=== PATIENT | male | born 1975 | race Hispanic/Latino ===

== ENCOUNTER 2018-08-24 00:33 | Emergency (ER) | payer BC ==
[2018-08-24] MEDS ORDERED: KETOROLAC 30 MG/ML INJ ONE (01:23)
[2018-08-24] MEDS ORDERED: NA CHLORIDE 0.9% 1,000 ML ONE (01:23)
[2018-08-24 01:44] LABS: Absolute Lymphocytes (CBC) 2.8 K/uL (0.7-4.9); Absolute Monocytes 0.8 K/uL (0.1-1.3); Absolute Neutrophil 5.9 K/uL (1.8-8.0); Basophils % 0.7 % (0-1.3); Eosinophils % 3.5 % (0-4.4); Hematocrit 44.5 % (39.6-49.0); Lymphocytes % 28.1 % (15.3-44.8); MPV 9.1 fL (7.6-11.3); Monocytes % 7.8 % (3.3-12.3); RBC Red Blood Cell Count 5.31 M/uL (4.33-5.43)
[2018-08-24 01:52] LABS: ALT/SGPT 125 U/L (12-78); AST/SGOT 40 U/L (15-37); Albumin 3.9 g/dL (3.4-5.0); Alkaline Phosphatase 99 U/L (45-117); BUN Blood Urea Nitrogen 17 mg/dL (7-18); Bicarbonate 28 mmol/L (21-32); Bilirubin Direct 0.2 mg/dL (0-0.2); Bilirubin Total 0.8 mg/dL (0.2-1.0); Glucose Level 121 mg/dL (74-106); Lipase 128 U/L (73-393); Magnesium 2.2 mg/dL (1.8-2.4); Potassium 3.6 mmol/L (3.5-5.1); Protein, Total 7.4 g/dL (6.4-8.2); Sodium Level 145 mmol/L (136-145)
--- NOTE | 2018-08-24 02:50 | ER ---
Nurse's Notes [facility] Name: Valentin Betancourt Age: 43 yrs Sex: Male : 1975 Arrival Date: 08/24/2018 Time: 00:46 Bed 7 Private MD: Diagnosis: Diverticulosis of intestine, part unspecified, without perforation or abscess without bleeding;Lower abdominal pain, unspecified Presentation: 08/24 01:00 Presenting complaint: Patient states: "the past couple of days I have had pain and jd3 bloating feeling in my lower left stomach and down into my left leg.". Transition of care: patient was not received from another setting of care. Onset of symptoms was August 24, 2018. Risk Assessment: Do you want to hurt yourself or someone else? Patient reports no desire to harm self or others. Initial Sepsis Screen: Does the patient meet any 2 criteria? No. Patient's initial sepsis screen is negative. Does the patient have a suspected source of infection? No. Patient's initial sepsis screen is negative. Care prior to arrival: None. 01:00 Method Of Arrival: Ambulatory jd3 01:00 Acuity: NEHA 3 jd3 Historical: - Allergies: 01:03 No Known Allergies; jd3 - Home Meds: 01:03 None [Active]; jd3 - PMHx: 01:03 None; jd3 - PSHx: 01:03 None; jd3 - Immunization history:: Adult Immunizations up to date. - Social history:: Smoking status: Patient/guardian denies using tobacco. - Ebola Screening: : Patient negative for fever greater than or equal to 101.5 degrees Fahrenheit, and additional compatible Ebola Virus Disease symptoms. Screenin:08 Abuse screen: Denies threats or abuse. Nutritional screening: No deficits noted. jd3 Tuberculosis screening: No symptoms or risk factors identified. Fall Risk Ambulatory Aid- None/Bed Rest/Nurse Assist (0 pts). Gait- Normal/Bed Rest/Wheelchair (0 pts) Mental Status- Oriented to own ability (0 pts). Total Pope Fall Scale indicates No Risk (0-24 pts). Assessment: 01:05 General: Appears in no apparent distress. uncomfortable, Behavior is calm, cooperative, jd3 appropriate for age. Pain: Complains of pain in left lower quadrant Quality of pain is described as aching, pressure. Neuro: Level of Consciousness is awake, alert, obeys commands, Oriented to person, place, time, situation, Appropriate for age. Cardiovascular: Denies chest pain, Capillary refill < 3 seconds Patient's skin is warm and dry. Respiratory: Airway is patent Respiratory effort is even, unlabored, Respiratory pattern is regular, symmetrical, Denies shortness of breath. GI: Abdomen is round non-distended, Bowel sounds present X 4 quads. Abd is soft and non tender X 4 quads. Reports lower abdominal pain, bloating, diarrhea. : No signs and/or symptoms were reported regarding the genitourinary system. EENT: No signs and/or symptoms were reported regarding the EENT system. Derm: Skin is intact, Skin is dry, Skin is normal, Skin temperature is warm. Musculoskeletal: Circulation, motion, and sensation intact. Range of motion: intact in all extremities. 02:00 Reassessment: Patient appears in no apparent distress at this time. Patient and/or [facility] family updated on plan of care and expected duration. Pain level reassessed. Patient is alert, oriented x 3, equal unlabored respirations, skin warm/dry/pink. Patient states feeling better. 02:57 Reassessment: Patient appears in no apparent distress at this time. No changes from [facility] previously documented assessment. Patient and/or family updated on plan of care and expected duration. Pain level reassessed. Patient is alert, oriented x 3, equal unlabored respirations, skin warm/dry/pink. Vital Signs: 01:03 BP 136 / 99; Pulse 76; Resp 15 S; Temp 98.4(O); Pulse Ox 97% on R/A; Weight 113.4 kg j (R); Height 5 ft. 8 in. (172.72 cm) (R); Pain 6/10; 02:23 BP 117 / 95; Pulse 63; Resp 17 S; Pulse Ox 97% on R/A; jd3 01:03 Body Mass Index 38.01 (113.40 kg, 172.72 cm) [facility] ED Course: 00:46 Patient arrived in ED. ag3 00:53 Hiro Calvo RN is Primary Nurse. jd3 00:54 Demario Gamez PA is PHCP. cp 00:54 Demario Lanza MD is Attending Physician. cp 01:01 Triage completed. jd3 01:05 Arm band placed on. jd3 01:08 Patient has correct armband on for positive identification. Bed in low position. Call jd3 light in reach. Side rails up X 1. 01:22 Inserted saline lock: 20 gauge in right antecubital area, using aseptic technique. ag4 Blood collected. 01:47 Radiology exam delayed due to lab results not completed at this time. (BUN/Creatinine). kw1 02:[address] via wheelchair. kw1 02:32 CT Abd/Pelvis - W/Contrast In Process Unspecified. EDMS 02:32 CT completed. Patient tolerated procedure well. Patient moved back from CT. kw1 02:48 Charanjit Sherman MD is Referral Physician. cp 02:57 No provider procedures requiring assistance completed. IV discontinued, intact, jd3 bleeding controlled, No redness/swelling at site. Pressure dressing applied. Administered Medications: 01:24 Drug: NS 0.9% 1000 ml Route: IV; Rate: 1 bolus; Site: right antecubital; jd3 02:58 Follow up: Response: No adverse reaction; IV Status: Completed infusion jd3 01:24 Drug: TORadol 30 mg Route: IVP; Site: right antecubital; jd3 02:58 Follow up: Response: No adverse reaction jd3 Outcome: 02:49 Discharge ordered by MD. cp 02:57 Discharged to home ambulatory. jd3 02:57 Condition: stable 02:57 Discharge instructions given to patient, Instructed on discharge instructions, follow up and referral plans. medication usage, Demonstrated understanding of instructions, follow-up care, medications, Prescriptions given X 4. 02:59 Patient left the ED. jd3 Signatures: Dispatcher [employer] ED[facility] Demario Gamez PA PA cp Davies, Jonathon, RN RN jd3 Tyra Shanks kw1 Izzy Scruggs ag3 Dallin Valero ag4 Corrections: (The following items were deleted from the chart) 02:57 02:57 Reassessment: Patient appears in no apparent distress at this time. Patient jd3 and/or family updated on plan of care and expected duration. Pain level reassessed. Patient is alert, oriented x 3, equal unlabored respirations, skin warm/dry/pink. Patient states feeling better. jd3
--- NOTE | 2018-08-24 02:50 | EDPHYS ---
Physician Documentation [facility] Name: Valentin Betancourt Age: 43 yrs Sex: Male : 1975 Arrival Date: 08/24/2018 Time: 00:46 Bed 7 Private MD: ED Physician Demario Lanza HPI: 08/24 01:10 This 43 yrs old Male presents to ER via Ambulatory with complaints of cp Abdominal Pain. 01:10 The patient presents with abdominal pain in the left lower quadrant, left lower flank. cp 01:10 Onset: The symptoms/episode began/occurred 3 day(s) ago. cp 01:10 The symptoms radiate to left leg. Associated signs and symptoms: Pertinent positives: cp diarrhea, Pertinent negatives: blood in stools, constipation, dysuria, fever, testicular pain, vomiting. The symptoms are described as waxing/waning. Historical: - Allergies: 01:03 No Known Allergies; jd3 - Home Meds: 01:03 None [Active]; jd3 - PMHx: 01:03 None; jd3 - PSHx: 01:03 None; jd3 - Immunization history:: Adult Immunizations up to date. - Social history:: Smoking status: Patient/guardian denies using tobacco. - Ebola Screening: : Patient negative for fever greater than or equal to 101.5 degrees Fahrenheit, and additional compatible Ebola Virus Disease symptoms. ROS: 01:15 Constitutional: Negative for body aches, chills, fever, poor PO intake. cp 01:15 Eyes: Negative for injury, pain, redness, and discharge. cp 01:15 ENT: Negative for drainage from ear(s), ear pain, sore throat, difficulty swallowing, difficulty handling secretions. 01:15 Cardiovascular: Negative for chest pain, edema, palpitations. 01:15 Respiratory: Negative for cough, shortness of breath, wheezing. 01:15 Abdomen/GI: Positive for abdominal pain, diarrhea, Negative for vomiting, constipation, anorexia, black/tarry stool, rectal bleeding. 01:15 Skin: Negative for cellulitis, rash. 01:15 Neuro: Negative for altered mental status, headache, weakness. 01:15 All other systems are negative. Exam: 01:20 Constitutional: The patient appears in no acute distress, alert, awake, non-toxic, well cp developed, well nourished. 01:20 Head/Face: Normocephalic, atraumatic. cp 01:20 Eyes: Periorbital structures: appear normal, Conjunctiva: normal, no exudate, no injection, Sclera: no appreciated abnormality, Lids and lashes: appear normal, bilaterally. 01:20 ENT: External ear(s): are unremarkable, Nose: is normal, Mouth: Lips: moist, Oral mucosa: pink and intact, moist, Posterior pharynx: is normal, airway is patent, no erythema, no exudate. 01:20 Chest/axilla: Inspection: normal, Palpation: is normal, no crepitus, no tenderness. 01:20 Cardiovascular: Rate: normal, Rhythm: regular. 01:20 Respiratory: the patient does not display signs of respiratory distress, Respirations: normal, no use of accessory muscles, no retractions, no splinting, no tachypnea, labored breathing, is not present, Breath sounds: are clear throughout, no decreased breath sounds, no stridor, no wheezing. 01:20 Abdomen/GI: Inspection: abdomen appears normal, Bowel sounds: active, all quadrants, Palpation: soft, in all quadrants, moderate abdominal tenderness, in the anterior aspect of left lateral abdomen and left lower quadrant, rebound tenderness, is not appreciated, involuntary guarding, is not appreciated. 01:20 Back: CVA tenderness, is absent. 01:20 Skin: cellulitis, is not appreciated, no rash present. Vital Signs: 01:03 BP 136 / 99; Pulse 76; Resp 15 S; Temp 98.4(O); Pulse Ox 97% on R/A; Weight 113.4 kg jd3 (R); Height 5 ft. 8 in. (172.72 cm) (R); Pain 6/10; 02:23 BP 117 / 95; Pulse 63; Resp 17 S; Pulse Ox 97% on R/A; jd3 01:03 Body Mass Index 38.01 (113.40 kg, 172.72 cm) jd3 MDM: 00:54 Patient medically screened. cp 01:30 Differential diagnosis: appendicitis, bowel obstruction, Cholelithiasis, cp diverticulitis, gastritis, non-specific abd pain, pancreatitis, Pyelonephritis, Ureterolithiasis, urinary tract infection. 02:45 Data reviewed: vital signs, nurses notes, lab test result(s), radiologic studies, CT cp scan. 02:45 Counseling: I had a detailed discussion with the patient and/or guardian regarding: the cp historical points, exam findings, and any diagnostic results supporting the discharge/admit diagnosis, lab results, radiology results, the need for outpatient follow up, a general surgeon, to return to the emergency department if symptoms worsen or persist or if there are any questions or concerns that arise at home. Response to treatment: the patient's symptoms have mildly improved after treatment, and as a result, I will discharge patient. 08/24 01:06 Order name: Basic Metabolic Panel; Complete Time: 02:27 cp 08/24 02:27 Interpretation: Normal except: CL 110; GLUC 121. cp 08/24 01:06 Order name: CBC with Diff; Complete Time: 02:27 cp 08/24 02:27 Interpretation: Reviewed. cp 08/24 01:06 Order name: Creatinine for Radiology; Complete Time: 02:27 cp 08/24 01:06 Order name: Hepatic Function; Complete Time: 02:27 cp 08/24 02:27 Interpretation: Normal except: AST 40; ALT 125. cp 08/24 01:06 Order name: Lipase; Complete Time: 02:27 cp 08/24 01:06 Order name: Magnesium; Complete Time: 02:27 cp 08/24 01:06 Order name: IV Saline Lock; Complete Time: 01:09 cp 08/24 01:06 Order name: Labs collected and sent; Complete Time: 01:23 cp 08/24 01:06 Order name: CT Abd/Pelvis - W/Contrast cp Administered Medications: 01:24 Drug: NS 0.9% 1000 ml Route: IV; Rate: 1 bolus; Site: right antecubital; jd3 02:58 Follow up: Response: No adverse reaction; IV Status: Completed infusion jd3 01:24 Drug: TORadol 30 mg Route: IVP; Site: right antecubital; jd3 02:58 Follow up: Response: No adverse reaction jd3 Disposition: 08/24/18 02:49 Discharged to Home. Impression: Diverticulosis of intestine, part unspecified, without perforation or abscess without bleeding, Lower abdominal pain, unspecified. - Condition is Stable. - Discharge Instructions: Abdominal Pain, Adult, Diverticulosis. - Prescriptions for Zofran 4 mg Oral Tablet - take 1 tablet by ORAL route every 12 hours As needed; 20 tablet. Cipro 500 mg Oral Tablet - take 1 tablet by ORAL route every 12 hours for 7 days; 14 tablet. Metronidazole 500 mg Oral Tablet - take 1 tablet by ORAL route every 8 hours for 7 days; 21 tablet. Tramadol 50 mg Oral Tablet - take 1 tablet by ORAL route every 8 hours as needed; 15 tablet. - Medication Reconciliation Form, Thank You Letter, Antibiotic Education, Prescription Opioid Use form. - Follow up: Charanjit Sherman MD; When: 2 - 3 days; Reason: Recheck today's complaints. - Problem is new. - Symptoms have improved. Addendum: 08/27/2018 11:23 Co-signature as Attending Physician, Demario Lanza MD I agree with the assessment and c longoria plan of care. Signatures: Dispatcher [employer] EDN[facility] Demario Lanza MD MD cha Page, Corey PA PA Hiro Johansen RN RN jd3 Corrections: (The following items were deleted from the chart) 08/24 02:59 02:49 08/24/2018 02:49 Discharged to Home. Impression: Diverticulosis of intestine, jd3 part unspecified, without perforation or abscess without bleeding; Lower abdominal pain, unspecified. Condition is Stable. Forms are Medication Reconciliation Form, Thank You Letter, Antibiotic Education, Prescription Opioid Use. Follow up: Charanjit Sherman; When: 2 - 3 days; Reason: Recheck today's complaints. Problem is new. Symptoms have improved. cp
--- NOTE | 2018-08-25 12:11 | RAD REPORT ---
EXAM DESCRIPTION: CT - Abdomen Pelvis W Contrast - 08/24/2018 2:42 am CLINICAL HISTORY: The patient is 43 years old and is Male; left side abdomen and flank pain TECHNIQUE: Axial computed tomography images of the abdomen and pelvis with intravenous contrast. S agittal and coronal reformatted images were created and reviewed. This CT exam was performed using one or more of the following dose reduction techniques: automated exposure control, adjustment of t he mA and/or kV according to patient size, and/or use of iterative reconstruction technique. COMPARISON: No relevant prior studies available. FINDINGS: Lung bases: Unremarkable. No mass. No consolidation. ABDOMEN: Liver: Unremarkable. No mass. Gallbladder and bile ducts: No calcified stones. No ductal dilation. Pancreas: No ductal dilation. No mass. Spleen: Unremarkable. Adrenals: Unremarkable. No mass. Kidneys and ureters: Unremarkable. No solid mass. No hydronephrosis. Stomach and bowel: The stomach is decompressed. The small bowel is normal in caliber. Stool is p resent throughout the colon. Scattered colonic diverticula are noted without surrounding inflammation . There is no bowel obstruction. PELVIS: Appendix: The appendix is normal in caliber without surrounding inflammation. Bladder: Unremarkable. No mass. Reproductive: Calcifications are present within the prostate. ABDOMEN and PELVIS: Intraperitoneal space: Unremarkable. No free air. No significant fluid collection. Bones/joints: Chronic compression deformity of T11 is noted. Focal gibbus deformity is present a t this level. Soft tissues: A fat-containing umbilical hernia is present. Vasculature: Unremarkable. No abdominal aortic aneurysm. Lymph nodes: Unremarkable. No enlarged lymph nodes. IMPRESSION: No acute findings on this contrasted CT of the abdomen and pelvis to explain the patient 's symptoms. Electronically signed by: Tayler Reddy MD 08/24/2018 2:36 AM CAR CHANGER Due to temporary technical issues with the PACS/Fluency reporting system, reports are being signed by the in house radiologist as a courtesy to ensure prompt reporting. The interpreting radiologist is f ully responsible for the content of the report.
== END 2018-08-24 02:59 | disposition home or self-care (01) ==
LOC: ER 00:33
DX: K57.90 Diverticulosis of intestine, part unspecified, without perforation or abscess without bleeding (principal)
CPT/HCPCS: 36415; 74177; 80048; 80076; 83690; 83735; 85025; 96361; 96374; 99284; J7030; Q9967

== ENCOUNTER 2019-08-22 | Emergency (ER) | payer BC, OTHER ==
--- NOTE | 2019-08-22 13:46 | ER ---
Nurse's Notes [facility] Name: Valentin Betancourt Age: 44 yrs Sex: Male : 1975 Arrival Date: 08/22/2019 Time: 13:05 Bed 7 Private MD: Diagnosis: Low back pain Presentation: 13:30 Chief complaint: Patient states: left lower back pain radiating to left leg X 1 week, iw denies injury, denies urinary s/s, also c/o mid abd pain for a long time and has an umbilical hernia, is due to see his doctor next week. Coronavirus screen: The patient has NOT traveled to [place] in the past 14 days. Proceed with normal triage procedures. Ebola Screen: Patient negative for fever greater than or equal to 101.5 degrees Fahrenheit, and additional compatible Ebola Virus Disease symptoms Patient denies exposure to infectious person. Patient denies travel to an Ebola-affected area in the 21 days before illness onset. No symptoms or risks identified at this time. Initial Sepsis Screen: Does the patient meet any 2 criteria? No. Patient's initial sepsis screen is negative. Does the patient have a suspected source of infection? No. Patient's initial sepsis screen is negative. Risk Assessment: Do you want to hurt yourself or someone else? Patient reports no desire to harm self or others. 13:30 Method Of Arrival: Ambulatory 13:30 Acuity: NEHA 3 iw Historical: - Allergies: 13:32 No Known Allergies; iw - Home Meds: 13:32 None [Active]; iw - PMHx: 13:32 None; iw - PSHx: 13:32 right index finger; iw - Immunization history:: Adult Immunizations not up to date. - Social history:: Smoking status: Patient denies any tobacco usage or history of. Screenin:30 Abuse screen: Denies threats or abuse. Nutritional screening: No deficits noted. aa5 Tuberculosis screening: No symptoms or risk factors identified. Fall Risk None identified. Assessment: 13:30 General: Appears comfortable, Behavior is calm, cooperative. Pain: Complains of pain in aa5 left low back Pain radiates to left leg Pain currently is 6 out of 10 on a pain scale. Quality of pain is described as sharp, shooting, Is continuous, Aggravated by increased activity. Neuro: Level of Consciousness is awake, alert, obeys commands, Oriented to person, place, time, situation. Cardiovascular: Heart tones S1 S2 present Rhythm is regular. Respiratory: Airway is patent Respiratory effort is even, unlabored, Respiratory pattern is regular, symmetrical. GI: No signs and/or symptoms were reported involving the gastrointestinal system. : No signs and/or symptoms were reported regarding the genitourinary system. EENT: No signs and/or symptoms were reported regarding the EENT system. Derm: Skin is pink, warm \T\ dry. Musculoskeletal: Range of motion: intact in all extremities. 13:50 Reassessment: Patient is alert, oriented x 3, equal unlabored respirations, skin aa5 warm/dry/pink. Vital Signs: 13:30 BP 138 / 103; Pulse 80; Resp 16; Temp 98.0; Pulse Ox 97% on R/A; Weight 108.86 kg; iw Height 5 ft. 8 in. (172.72 cm); Pain 8/10; 13:50 BP 128 / 88; Pulse 82; Resp 18 S; Pulse Ox 98% on R/A; aa5 13:30 Body Mass Index 36.49 (108.86 kg, 172.72 cm) iw ED Course: 13:05 Patient arrived in ED. mr 13:23 Ameena Dawson, RN is Primary Nurse. aa5 13:24 Rafael Coe [facility]C [facility]. la1 13:24 Demario Lanza MD is Attending Physician. la1 13:32 Triage completed. iw 13:32 Arm band placed on. iw 13:32 Patient has correct armband on for positive identification. Bed in low position. Call aa5 light in reach. Side rails up X 1. 13:50 No provider procedures requiring assistance completed. Patient did not have IV access aa5 during this emergency room visit. Administered Medications: No medications were administered Outcome: 13:46 Discharge ordered by . la1 13:52 Discharged to home ambulatory. aa5 13:52 Condition: stable 13:52 Discharge instructions given to patient, Instructed on discharge instructions, follow up and referral plans. medication usage, Demonstrated understanding of instructions, follow-up care, medications, Prescriptions given X 3. 13:56 Patient left the ED. eb Signatures: Barbara Miller mr Tiffanie Castanon RN RN Ameena Dawson, RN RN aa5 Rafael Coe FNP-C SOFTWARE PROGRAM MANAGER-Cla1 Jazmin Tyson Corrections: (The following items were deleted from the chart) 13:34 13:30 Acuity: NEHA 4 iw iw
--- NOTE | 2019-08-22 13:46 | EDPHYS ---
Physician Documentation [facility] Name: Valentin Betancourt Age: 44 yrs Sex: Male : 1975 Arrival Date: 08/22/2019 Time: 13:05 Bed 7 Private MD: ARAVIND Physician Demario Lanza HPI: 13:41 This 44 yrs old Male presents to ER via Ambulatory with complaints of Back la1 Pain, Abdominal Pain. 13:41 The patient presents with pain that is acute, with no known mechanism of injury. The la1 symptoms are located in the left low back. Onset: The symptoms/episode began/occurred 1 week(s) ago. left lateral thigh to knee. Associated signs and symptoms: Pertinent negatives: dysuria, incontinence, numbness, tingling, urinary retention. The problem was sustained from unknown cause. Modifying factors: The patient symptoms are alleviated by remaining still, rest, the patient symptoms are aggravated by any movement, sitting. Severity of symptoms: At their worst the symptoms were moderate. The patient has not experienced similar symptoms in the past. The patient has not recently seen a physician. pt also states he has a hernia and has an apt in a few days with a general surgeon. Historical: - Allergies: 13:32 No Known Allergies; iw - Home Meds: 13:32 None [Active]; iw - PMHx: 13:32 None; iw - PSHx: 13:32 right index finger; iw - Immunization history:: Adult Immunizations not up to date. - Social history:: Smoking status: Patient denies any tobacco usage or history of. ROS: 13:42 Constitutional: Negative for fever, chills, and weight loss, Eyes: Negative for injury, la1 pain, redness, and discharge, ENT: Negative for injury, pain, and discharge, Neck: Negative for injury, pain, and swelling, Cardiovascular: Negative for chest pain, palpitations, and edema, Respiratory: Negative for shortness of breath, cough, wheezing, and pleuritic chest pain, Abdomen/GI: Negative for abdominal pain, nausea, vomiting, diarrhea, and constipation. 13:42 MS/Extremity: Negative for injury and deformity, Neuro: Negative for headache, weakness, numbness, tingling, and seizure. 13:42 Back: Positive for pain with movement, radiated pain. Exam: 13:43 Constitutional: This is a well developed, well nourished patient who is awake, alert, la1 and in no acute distress. Head/Face: Normocephalic, atraumatic. Eyes: Pupils equal round and reactive to light, extra-ocular motions intact. Lids and lashes normal. Conjunctiva and sclera are non-icteric and not injected. Cornea within normal limits. Periorbital areas with no swelling, redness, or edema. Neck: Trachea midline, Chest/axilla: Normal chest wall appearance and motion. Nontender with no deformity. No lesions are appreciated. Cardiovascular: Regular rate and rhythm with a normal S1 and S2. No gallops, murmurs, or rubs. Normal PMI, no JVD. No pulse deficits. Respiratory: Lungs have equal breath sounds bilaterally, clear to auscultation and 13:43 Back: pain, that is moderate, of the left low back, ROM is normal, normal spinal alignment noted, CVA tenderness, is absent, vertebral tenderness, is not appreciated, Straight leg raises: right lower extremity does not illicit pain, left lower extremity does not illicit pain. 13:43 : Exam negative for acute changes. 13:43 Neuro: Orientation: is normal, Mentation: is normal, Cerebellar function: is grossly normal, Motor: is normal, Sensation: is normal, Gait: is steady, at a normal pace, without difficulty. Vital Signs: 13:30 BP 138 / 103; Pulse 80; Resp 16; Temp 98.0; Pulse Ox 97% on R/A; Weight 108.86 kg; iw Height 5 ft. 8 in. (172.72 cm); Pain 8/10; 13:50 BP 128 / 88; Pulse 82; Resp 18 S; Pulse Ox 98% on R/A; aa5 13:30 Body Mass Index 36.49 (108.86 kg, 172.72 cm) iw MDM: 13:33 Patient medically screened. la1 13:44 Data reviewed: vital signs, nurses notes, I have discussed the patient's la1 presentation/case with the attending Emergency Department Physician; and as a result, I will discharge patient. Data interpreted: Pulse oximetry: on room air is 97 %. Interpretation: normal. Counseling: I had a detailed discussion with the patient and/or guardian regarding: the historical points, exam findings, and any diagnostic results supporting the discharge/admit diagnosis, the need for outpatient follow up, a family practitioner, a general surgeon, to return to the emergency department if symptoms worsen or persist or if there are any questions or concerns that arise at home. ED course: pt denies acute changes with abd hernia, denies prolonged steroid use, denies IV drug use, Denies hx of osteoporosis, denies injury, denies numbness.. Administered Medications: No medications were administered Disposition: 08/22/19 13:46 Discharged to Home. Impression: Low back pain. - Condition is Stable. - Discharge Instructions: Back Pain, Adult, Musculoskeletal Pain, Back Pain, Adult, [id number], Back Exercises, [id number]-ll-[id number]. - Prescriptions for Robaxin 500 mg Oral Tablet - take 2 tablet by ORAL route every 6 hours As needed; 40 tablet. Diclofenac Sodium 75 mg Oral Tablet Sustained Release - take 1 tablet by ORAL route 2 times per day; 30 tablet. Medrol (Virgil) 4 mg Oral Tablets, Dose Pack - take 1 tablet by ORAL route as directed - follow package instructions; 1 packet. - Medication Reconciliation Form, Thank You Letter form. - Follow up: Private Physician; When: 2 - 3 days; Reason: Recheck today's complaints, Re-evaluation by your physician. - Problem is new. - Symptoms have improved. Addendum: 08/23/2019 17:59 Co-signature as Attending Physician, Demario Lanza MD I agree with the assessment and c longoria plan of care. Signatures: Demario Lanza MD MD cha Williams, Irene, RHONDA RN iw Rafael Coe, SPACE CONTROL SUPERVISOR-C SPACE CONTROL SUPERVISOR-Cla1 Jazmin Tyson Corrections: (The following items were deleted from the chart) 13:56 13:46 08/22/2019 13:46 Discharged to Home. Impression: Low back pain. Condition is eb Stable. Forms are Medication Reconciliation Form, Thank You Letter, Antibiotic Education, Prescription Opioid Use. Follow up: Private Physician; When: 2 - 3 days; Reason: Recheck today's complaints, Re-evaluation by your physician. Problem is new. Symptoms have improved. la1
== END 2019-08-22 13:56 | disposition home or self-care (01) ==
DX: M54.5 Low back pain (principal)
CPT/HCPCS: 99282

== ENCOUNTER 2019-11-21 22:41 | Emergency (ER) | payer OTHER ==
[2019-11-21] MEDS ORDERED: KETOROLAC 30 MG/ML INJ ONE (23:56)
[2019-11-22 02:53] VITALS: TEMP 97.2; O2SAT 100
[2019-11-22 02:54] VITALS: BP 150/78
--- NOTE | 2019-11-22 11:14 | RAD REPORT ---
EXAM DESCRIPTION: RAD - Shoulder Left 2 View - 11/22/2019 1:23 am CLINICAL HISTORY: Left shoulder pain FINDINGS: No fracture or dislocation is seen. 22 millimeter calcific density overlies the left shoulder. This may represent calcific tendinitis or less likely calcified mass. Follow-up x-ray of the left shoulder is recommended in 3 months to assess stability
--- NOTE | 2019-11-22 11:17 | RAD REPORT ---
EXAM DESCRIPTION: RAD - Lumbar Spine 3 Views - 11/22/2019 1:26 am CLINICAL HISTORY: Back pain FINDINGS: Moderate compression fracture T11 vertebral body unchanged from 2019. No fracture or dislocation involves the lumbar spine. Mild spondylosis
--- NOTE | 2019-11-23 18:30 | EDPHYS ---
Physician Documentation [facility] Name: Valentin Betancourt Age: 44 yrs Sex: Male : 1975 Arrival Date: 11/21/2019 Time: 22:45 Bed 13 Private MD: ED Physician Jose Manuel Freed HPI: 11/21 00:16 This 44 yrs old Male presents to ER via Ambulatory with complaints of Back mh7 Pain, Shoulder Pain. 00:16 The patient presents with pain that is acute, with no known mechanism of injury. The mh7 symptoms are located in the low back. Onset: The symptoms/episode began/occurred gradually, 4 day(s) ago. The pain does not radiate. Associated signs and symptoms: Pertinent negatives: abdominal pain, chest pain, constipation, dysuria, fever, headache, hematuria, incontinence, nausea, numbness, tingling, urinary retention, vomiting, weakness. The problem was sustained from unknown cause. Modifying factors: The patient symptoms are alleviated by remaining still, the patient symptoms are aggravated by movement, walking. Severity of symptoms: At their worst the symptoms were moderate, 4 day(s) ago, in the emergency department the symptoms have improved, moderately. The patient has experienced similar episodes in the past, multiple times. Patient states that he has had a flare up of his lower back pain and left shoulder pain. He denies any known trauma. He denies any chest pain, abdominal pain, bladder/bowel retention or incontinence, numbness/tingling, or weakness.. Historical: - Allergies: 11/20 22:58 No Known Allergies; sg - PMHx: 22:58 Chronic Back Pain; sg - PSHx: 22:58 right index finger; sg - Immunization history:: Adult Immunizations up to date. - Social history:: Smoking status: Patient reports the use of cigarette tobacco products. ROS: 11/21 00:16 Constitutional: Negative for fever, chills, and weight loss, Eyes: Negative for injury, mh7 pain, redness, and discharge, ENT: Negative for injury, pain, and discharge, Neck: Negative for injury, pain, and swelling, Cardiovascular: Negative for chest pain, palpitations, and edema, Respiratory: Negative for shortness of breath, cough, wheezing, and pleuritic chest pain, Abdomen/GI: Negative for abdominal pain, nausea, vomiting, diarrhea, and constipation, : Negative for injury, bleeding, discharge, and swelling, Skin: Negative for injury, rash, and discoloration, Neuro: Negative for headache, weakness, numbness, tingling, and seizure, Psych: Negative for depression, anxiety, suicide ideation, homicidal ideation, and hallucinations, Allergy/Immunology: Negative for hives, rash, and allergies, Endocrine: Negative for neck swelling, polydipsia, polyuria, polyphagia, and marked weight changes, Hematologic/Lymphatic: Negative for swollen nodes, abnormal bleeding, and unusual bruising. Exam: 00:16 Constitutional: This is a well developed, well nourished patient who is awake, alert, mh7 and in no acute distress. Head/Face: Normocephalic, atraumatic. Eyes: Pupils equal round and reactive to light, extra-ocular motions intact. Lids and lashes normal. Conjunctiva and sclera are non-icteric and not injected. Cornea within normal limits. Periorbital areas with no swelling, redness, or edema. Neck: Trachea midline, no thyromegaly or masses palpated, and no cervical lymphadenopathy. Supple, full range of motion without nuchal rigidity, or vertebral point tenderness. No Meningismus. Chest/axilla: Normal chest wall appearance and motion. Nontender with no deformity. No lesions are appreciated. Cardiovascular: Regular rate and rhythm with a normal S1 and S2. No gallops, murmurs, or rubs. Normal PMI, no JVD. No pulse deficits. Respiratory: Lungs have equal breath sounds bilaterally, clear to auscultation and percussion. No rales, rhonchi or wheezes noted. No increased work of breathing, no retractions or nasal flaring. Abdomen/GI: Soft, non-tender, with normal bowel sounds. No distension or tympany. No guarding or rebound. No evidence of tenderness throughout. 00:16 Skin: Warm, dry with normal turgor. Normal color with no rashes, no lesions, and no evidence of cellulitis. 00:16 Neuro: Awake and alert, GCS 15, oriented to person, place, time, and situation. Cranial nerves II-XII grossly intact. Motor strength 5/5 in all extremities. Sensory grossly intact. Cerebellar exam normal. Normal gait. Psych: Awake, alert, with orientation to person, place and time. Behavior, mood, and affect are within normal limits. 00:16 Back: pain, that is mild, of the lumbar area, ROM is normal, normal spinal alignment noted, CVA tenderness, is absent, vertebral tenderness, is appreciated at low back, muscle spasm, is appreciated in the low back, Straight leg raises: right lower extremity does not illicit pain, left lower extremity does not illicit pain. 00:16 Musculoskeletal/extremity: Extremities: noted in the left shoulder: pain, tenderness, ROM: limited active range of motion due to pain, in the left shoulder, limited passive range of motion due to pain, in the left shoulder, Circulation is intact in all extremities. Pulses: are normal with no appreciated deficits, Perfusion: the patient is normally perfused throughout, Perfusion: the extremity is normally perfused throughout, Sensation intact. Compartment Syndrome exam of affected extremity: is normal. no numbness, no tingling, no sensation deficit, no palor, no weak pulses, Joints: the left shoulder displays painful range of motion, Weight bearing: able to fully bear weight, without difficulty, Tendon exam: specific tendon testing normal through active and passive range of motion DVT Exam: no pain, no swelling, no tenderness, negative Homans' sign noted on exam, no appreciated bluish discoloration, no erythema, no increased warmth, Calves: are non-tender. Vital Signs: 11/20 22:55 BP 142 / 88; Pulse 77; Resp 18; Temp 97.2; Pulse Ox 100% on R/A; Pain 6/10; sg 11/21 02:40 BP 150 / 78; Pulse 70; Resp 18; Pulse Ox 100% ; ea MDM: 11/20 23:20 Patient medically screened. [facility] 11/21 02:35 Differential diagnosis: arthritis, chronic back pain, Fracture Joint Injury Ligament mh7 Injury Osteoarthritis ruptured disc, sprain, vertebral fracture. Data reviewed: vital signs, nurses notes, radiologic studies, plain films. Response to treatment: the patient's symptoms have resolved after treatment, the patient's blood pressure is in an acceptable range, mental status has returned to baseline, the patient no longer shows bradycardia, the patient is not short of breath, the patient is not tachycardic, the patient's pain is gone, the patient's temperature has normalized. 11/20 23:34 Order name: Shoulder Left (2 View) XRAY 7 11/20 23:34 Order name: Lumbar Spine (3 Views) XRAY mh7 Administered Medications: 11/20 23:56 Drug: TORadol 60 mg Route: IM; Site: right deltoid; rv 11/21 00:23 Follow up: Response: No adverse reaction ea Disposition: 11/22/19 02:37 Discharged to Home. Impression: Low back pain, Left Shoulder Pain. - Condition is Stable. - Discharge Instructions: Shoulder Pain, Wvpz-wx-Ytfy, Back Pain, Adult, Tmnd-tx-Skes. - Prescriptions for ketorolac 10 mg Oral tablet - take 1 tablet by ORAL route every 8 hours As needed not to exceed 40 mg in 24hrs; 12 tablet. Cyclobenzaprine 10 mg Oral Tablet - take 1 tablet by ORAL route every 8 hours As needed; 15 tablet. - Work release form, Medication Reconciliation Form, Thank You Letter, Antibiotic Education, Prescription Opioid Use form. - Follow up: Private Physician; When: 1 - 2 days; Reason: Worsening of condition, Re-evaluation by your physician. - Problem is an acute exacerbation. - Symptoms have improved. Signatures: Dispatcher [employer] EDMS Zachariah Lewis RN RN Shanique Hammond RN RN Balbir Sánchez RN RN Jose Manuel Arriaga MD MD mh7 Corrections: (The following items were deleted from the chart) 02:47 02:37 11/22/2019 02:37 Discharged to Home. Impression: Low back pain; Left Shoulder ea Pain. Condition is Stable. Forms are Medication Reconciliation Form, Thank You Letter, Antibiotic Education, Prescription Opioid Use. Follow up: Private Physician; When: 1 - 2 days; Reason: Worsening of condition, Re-evaluation by your physician. Problem is an acute exacerbation. Symptoms have improved. mh7
--- NOTE | 2019-11-23 18:30 | ER ---
Nurse's Notes [facility] Name: Valentin Betancourt Age: 44 yrs Sex: Male : 1975 Arrival Date: 11/21/2019 Time: 22:45 Bed 13 Private MD: Diagnosis: Low back pain;Left Shoulder Pain Presentation: 11/20 22:55 Chief complaint: Patient states: pt states this pain began about 6 months ago, has had sg an MRI back in June but states he did not get a call back with the results of the scan, pt denies any injury or trauma at this time, pt reports he does not remember the name of the physician that ordered the scan at this time, reports the pain is in the center of the back and radiates into the left shoulder. Coronavirus screen: Ebola Screen: Patient negative for fever greater than or equal to 101.5 degrees Fahrenheit, and additional compatible Ebola Virus Disease symptoms Patient denies exposure to infectious person. Patient denies travel to an Ebola-affected area in the 21 days before illness onset. No symptoms or risks identified at this time. Initial Sepsis Screen: Does the patient meet any 2 criteria? No. Patient's initial sepsis screen is negative. Does the patient have a suspected source of infection? No. Patient's initial sepsis screen is negative. Risk Assessment: Do you want to hurt yourself or someone else? Patient reports no desire to harm self or others. Onset of symptoms was November 21, 2019. Care prior to arrival: None. 22:55 Acuity: NEHA 4 sg 22:55 Method Of Arrival: Ambulatory sg Historical: - Allergies: 22:58 No Known Allergies; sg - PMHx: 22:58 Chronic Back Pain; sg - PSHx: 22:58 right index finger; sg - Immunization history:: Adult Immunizations up to date. - Social history:: Smoking status: Patient reports the use of cigarette tobacco products. Screenin:08 Abuse screen: Denies threats or abuse. Nutritional screening: No deficits noted. ea Tuberculosis screening: No symptoms or risk factors identified. Fall Risk None identified. Assessment: 23:07 General: Appears uncomfortable, Behavior is calm, cooperative, appropriate for age. ea Pain: Complains of pain in left low back and left arm. Neuro: Level of Consciousness is awake, alert, obeys commands, Oriented to person, place, time. Cardiovascular: Patient's skin is warm and dry. Respiratory: Airway is patent Respiratory effort is even, unlabored, Respiratory pattern is regular, symmetrical. Derm: Skin is pink, warm \T\ dry. 11/21 00:23 Reassessment: Patient and/or family updated on plan of care and expected duration. Pain ea level reassessed. Patient is alert, oriented x 3, equal unlabored respirations, skin warm/dry/pink. 01:00 Reassessment: Patient and/or family updated on plan of care and expected duration. Pain ea level reassessed. Patient is alert, oriented x 3, equal unlabored respirations, skin warm/dry/pink. 02:46 Reassessment: Patient and/or family updated on plan of care and expected duration. Pain ea level reassessed. Patient is alert, oriented x 3, equal unlabored respirations, skin warm/dry/pink. Discharge instruction given to patient, verbalized the understanding of instruction. Pt left ED ambulatory tolerating well. Vital Signs: 11/20 22:55 BP 142 / 88; Pulse 77; Resp 18; Temp 97.2; Pulse Ox 100% on R/A; Pain 6/10; sg 11/21 02:40 BP 150 / 78; Pulse 70; Resp 18; Pulse Ox 100% ; ea ED Course: 11/20 22:45 Patient arrived in ED. bp1 22:52 Jose Manuel Freed MD is Attending Physician. [facility] 22:57 Triage completed. sg 22:57 Arm band placed on. sg 23:00 Shanique Mccauley, RN is Primary Nurse. ea 23:08 Patient has correct armband on for positive identification. Bed in low position. Call ea light in reach. Side rails up X2. 11/21 01:23 Shoulder Left (2 View) XRAY In Process Unspecified. EDMS 01:26 Lumbar Spine (3 Views) XRAY In Process Unspecified. EDMS 02:45 No provider procedures requiring assistance completed. Patient did not have IV access ea during this emergency room visit. Administered Medications: 11/20 23:56 Drug: TORadol 60 mg Route: IM; Site: right deltoid; rv 11/21 00:23 Follow up: Response: No adverse reaction ea Outcome: 02:37 Discharge ordered by . [facility] 02:45 Discharged to home ambulatory. ea 02:45 Condition: stable 02:45 Discharge instructions given to patient, Instructed on discharge instructions, follow up and referral plans. medication usage, Demonstrated understanding of instructions, follow-up care, medications, Prescriptions given X 2. 02:47 Patient left the ED. ea Signatures: Dispatcher [employer] EDMS Zachariah Lewis RN RN sg Antunez, Elena, RN RN ea Vicente, Ronaldo, RN RN rv Paniauga, Brittany bp1 Holmes, Maurice, MD MD mh7
== END 2019-11-22 02:47 | disposition home or self-care (01) ==
LOC: ER 22:41
DX: M25.512 Pain in left shoulder (principal); Z72.0 Tobacco use
CPT/HCPCS: 72100; 96372; 99283

== ENCOUNTER 2022-08-10 12:40 | Emergency (ER) | payer BC, OTHER ==
--- OUTSIDE RECORDS SUMMARY | 2022-08-10 12:42 | XMS REPORT | Continuity of Care Document ---
:1975 Author Organization [facility] Address [address] [place] [address] Dr. Dao [address] [place] [id number] Care Team Providers Name Role Phone AMANDA_Purvi Attending Clinician Unavailable AMANDA_Purvi Admitting Clinician Unavailable Payers Payer Name Policy Type Policy Number Effective Date Expiration Date S ource [place] [id number] 2014 00:00:00 [place] Problems This patient has no known problems. Allergies, Adverse Reactions, Alerts This patient has no known allergies or adverse reactions. Medications This patient has no known medications. Procedures This patient has no known procedures. Encounters Start End Encounter Admission Attending Care Care Encounter Source Date/Time Date/Time Type Type Clinicians Facility Department ID 2020-03-29 2020-03-29 Outpatient MOISES MARCANO [facility] [id number] [place] 12:40:00 12:40:00 [facility] Results This patient has no known results.
[2022-08-10] MEDS ORDERED: IBUPROFEN 400 MG TAB ONE (13:00)
--- NOTE | 2022-08-10 13:51 | RAD REPORT ---
EXAM DESCRIPTION: [facility] And Lat (2 Views)08/10/2022 1:14 pm CLINICAL HISTORY: COUGH COMPARISON: No comparisons TECHNIQUE: PA and lateral views of the chest. FINDINGS: The lungs are clear.Elevation of the left hemidiaphragm is noted. No pneumothorax or effus ion. The cardiomediastinal contours are unremarkable. IMPRESSION: No acute pulmonary process. Elevation of the left hemidiaphragm.
[2022-08-10 14:09] LABS: SARS-COV-2 RT PCR NEGATIVE (NEGATIVE)
--- NOTE | 2022-08-10 14:30 | ER ---
Nurse's Notes [facility] Name: Valentin Betancourt Age: 47 yrs Sex: Male : 1975 Arrival Date: 08/10/2022 Time: 12:43 Bed 5 Private MD: Diagnosis: Acute upper respiratory infection, unspecified Presentation: 08/10 12:47 Chief complaint: Patient states: fever, chills, cough, body aches, no vomiting or iw diarrhea X 3 days, home COVID was negative, last tylenol was 0745 today. Coronavirus screen: Client presents with at least one sign or symptom that may indicate coronavirus-19. Ebola Screen: Patient negative for fever greater than or equal to 101.5 degrees Fahrenheit, and additional compatible Ebola Virus Disease symptoms Patient denies exposure to infectious person. Patient denies travel to an Ebola-affected area in the 21 days before illness onset. No symptoms or risks identified at this time. Initial Sepsis Screen: Does the patient meet any 2 criteria? HR > 90 bpm. Does the patient have a suspected source of infection?. Risk Assessment: Do you want to hurt yourself or someone else? Patient reports no desire to harm self or others. Onset of symptoms was August 07, 2022. 12:47 Method Of Arrival: Ambulatory iw 12:47 Acuity: NEHA 3 iw Historical: - Allergies: 12:49 No Known Allergies; iw - Home Meds: 12:49 None [Active]; iw - PMHx: 12:49 chronic back pain; iw - PSHx: 12:49 finger aputation; iw - Immunization history:: Client reports receiving the 2nd dose of the Covid vaccine. - Social history:: Smoking status: Patient denies any tobacco usage or history of. Screenin:58 [facility] ED Fall Risk Assessment (Adult) Score/Fall Risk Level 0 - 2 = Low Risk hb Oriented to surroundings, Maintained a safe environment, Educated pt \T\ family on fall prevention, incl call for assistance when getting out of bed. Abuse screen:. Nutritional screening: No deficits noted. Tuberculosis screening: No symptoms or risk factors identified. Assessment: 13:00 General: Appears in no apparent distress. uncomfortable, ill, Behavior is calm, ko1 cooperative, appropriate for age. Pain: Pain does not radiate. Pain began gradually. Neuro: No deficits noted. Cardiovascular: No deficits noted. Respiratory: Reports cough that is. GI: No deficits noted. : No deficits noted. EENT: No deficits noted. Derm: No deficits noted. Musculoskeletal: No deficits noted. Vital Signs: 12:47 BP 147 / 70; Pulse 131; Resp 20 S; Temp 103.3; Pulse Ox 94% on R/A; Weight 102.06 kg; iw Height 5 ft. 8 in. (172.72 cm); 13:00 BP 116 / 88; Pulse 105; Resp 18; Temp 99.7(O); Pulse Ox 98% ; ko1 12:47 Body Mass Index 34.21 (102.06 kg, 172.72 cm) iw ED Course: 12:43 Patient arrived in ED. as 12:49 Triage completed. iw 12:50 Arm band placed on. iw 12:51 Jessica Mullen FNP-C is PHCP. kb 12:51 Henri Estrada MD is Attending Physician. kb 12:54 Shelli Cordero, RN is Primary Nurse. ko1 13:00 Patient has correct armband on for positive identification. Bed in low position. Call ko1 light in reach. Pulse ox on. NIBP on. 13:00 No provider procedures requiring assistance completed. Patient did not have IV access ko1 during this emergency room visit. Patient maintains SpO2 saturation greater than 95% on room air. 13:02 COVID-19/FLU A+B Sent. ko1 13:15 Chest Pa And Lat (2 Views) XRAY In Process Unspecified. EDMS Administered Medications: 12:58 Drug: Ibuprofen 800 mg Route: PO; ko1 Medication: 13:00 VIS not applicable for this client. ko1 Outcome: 14:29 Discharge ordered by . kb 14:34 Discharged to home ambulatory. ko1 14:34 Condition: improved 14:34 Discharge instructions given to patient, family, Instructed on discharge instructions, follow up and referral plans. medication usage, Demonstrated understanding of instructions, follow-up care, medications, Prescriptions given X 1. 14:36 Patient left the ED. ko1 Signatures: Dispatcher [employer] EDMS Jessica Mullen FNP-C FNP-Ckb Martinez, Amelia as Williams, Irene, RN RN Alma Canales RN RN Shelli Cordero RN RN ko1 Corrections: (The following items were deleted from the chart) 12:50 12:49 PSHx: None; iw iw
--- NOTE | 2022-08-10 14:30 | EDPHYS ---
Physician Documentation [facility] Name: Valentin Betancourt Age: 47 yrs Sex: Male : 1975 Arrival Date: 08/10/2022 Time: 12:43 Bed 5 Private MD: ED Physician Henri Estrada HPI: 08/10 14:23 This 47 yrs old Male presents to ER via Ambulatory with complaints of Chest kb Pain, Headache, Weakness. 14:23 The patient or guardian reports cough, that is intermittent, described as mild, flu kb symptoms, low-grade fever, myalgias. Onset: The symptoms/episode began/occurred 3 day(s) ago. Severity of symptoms: At their worst the symptoms were mild, moderate, in the emergency department the symptoms are unchanged. Modifying factors: The symptoms are alleviated by nothing, the symptoms are aggravated by nothing. Associated signs and symptoms: Pertinent positives: fever. The patient has not experienced similar symptoms in the past. The patient has not recently seen a physician. Historical: - Allergies: 12:49 No Known Allergies; iw - Home Meds: 12:49 None [Active]; iw - PMHx: 12:49 chronic back pain; iw - PSHx: 12:49 finger aputation; iw - Immunization history:: Client reports receiving the 2nd dose of the Covid vaccine. - Social history:: Smoking status: Patient denies any tobacco usage or history of. ROS: 14:22 Abdomen/GI: Negative for abdominal pain, nausea, vomiting, diarrhea, and constipation. kb 14:22 Constitutional: Positive for body aches, fever. 14:22 Respiratory: Positive for cough. 14:22 Neuro: Positive for headache. 14:22 All other systems are negative. Exam: 14:22 Constitutional: This is a well developed, well nourished patient who is awake, alert, kb and in no acute distress. Head/Face: Normocephalic, atraumatic. ENT: Moist Mucous membranes Cardiovascular: Regular rate and rhythm with a normal S1 and S2. No gallops, murmurs, or rubs. No pulse deficits. Respiratory: Respirations even and unlabored. No increased work of breathing. Talking in full sentences Abdomen/GI: Soft, non-tender. No distention Skin: Warm, dry with normal turgor. Normal color. MS/ Extremity: Pulses equal, no cyanosis. Neurovascular intact. Full, normal range of motion. Neuro: Awake and alert, GCS 15, oriented to person, place, time, and situation. Moves all extremities. Normal gait. Vital Signs: 12:47 BP 147 / 70; Pulse 131; Resp 20 S; Temp 103.3; Pulse Ox 94% on R/A; Weight 102.06 kg; iw Height 5 ft. 8 in. (172.72 cm); 13:00 BP 116 / 88; Pulse 105; Resp 18; Temp 99.7(O); Pulse Ox 98% ; ko1 12:47 Body Mass Index 34.21 (102.06 kg, 172.72 cm) iw MDM: 12:52 Patient medically screened. kb 14:20 Differential diagnosis: viral Infection, bacterial infection, URI, bronchitis, kb pneumonia Flu, COVID. Data reviewed: vital signs, nurses notes. Counseling: I had a detailed discussion with the patient and/or guardian regarding: the historical points, exam findings, and any diagnostic results supporting the discharge/admit diagnosis, lab results, radiology results, the need for outpatient follow up, a family practitioner, to return to the emergency department if symptoms worsen or persist or if there are any questions or concerns that arise at home. ED course: Patient is a 47-year-old male that presents with cough, headache, fever, body aches that started 3 days ago. Denies shortness of breath or chest pain. Denies nausea, vomiting, diarrhea. Physical exam within normal limits. COVID and flu test as well as chest x-ray ordered. Negative for COVID, flu and pneumonia. Patient nontoxic in appearance, tolerating p.o. intake. Fever decreased after ibuprofen. Presentation appears to be viral in nature. [id number] medications discussed and return precautions given.. 08/10 12:55 Order name: COVID-19/FLU A+B; Complete Time: 14:15 kb 08/10 12:55 Order name: Chest Pa And Lat (2 Views) XRAY; Complete Time: 13:51 kb 08/10 14:16 Order name: Vital Signs kb Administered Medications: 12:58 Drug: Ibuprofen 800 mg Route: PO; ko1 Disposition: 14:50 Co-signature as Attending Physician, Henri Estrada MD I reviewed the patient's care rt provided by the Advanced Practice Provider and agree with the diagnosis and treatment plan. Disposition Summary: 08/10/22 14:29 Discharge Ordered Location: Home kb Condition: Stable kb Diagnosis - Acute upper respiratory infection, unspecified kb Followup: kb - With: Emergency Department - When: As needed - Reason: Worsening of condition Followup: kb - With: Private Physician - When: 2 - 3 days - Reason: Recheck today's complaints, Continuance of care, Re-evaluation by your physician Discharge Instructions: - Discharge Summary Sheet kb - Upper Respiratory Infection, Adult, [id number] kb - Viral Respiratory Infection, [id number] kb Forms: - Medication Reconciliation Form kb - Thank You Letter kb - Antibiotic Education kb - Prescription Opioid Use kb Prescriptions: - Tessalon Perles 100 mg Oral Capsule - take 1 capsule by ORAL route every 8 hours As needed; 15 capsule; Refills: 0, kb Product Selection Permitted Signatures: Dispatcher [employer] EDMS Jessica Mullen, [employer]-Tiffanie Donovan RN RHONDA iw Shelli Cordero RN RN ko1 Henri Estrada MD MD rt Corrections: (The following items were deleted from the chart) 12:50 12:49 PSHx: None; iw iw
[2022-08-10 15:16] VITALS: BP 116/88; TEMP 99.7; O2SAT 98
== END 2022-08-10 14:36 | disposition home or self-care (01) ==
LOC: ER 12:40
DX: J06.9 Acute upper respiratory infection, unspecified (principal); Z20.822 Contact with and (suspected) exposure to COVID-19
CPT/HCPCS: 0240U; 71046; 99284